=== PATIENT | male | born 2005 | race Hispanic/Latino ===

== ENCOUNTER 2025-05-17 18:16 | Inpatient (IN) | payer OTHER ==
[~2025-05-17] VITALS: Ht 167.6 cm; Wt 77.2 kg
[2025-05-17 18:54] LABS: PLATELET COUNT, AUTOMATED 357 10^3/uL (150-450)
[2025-05-17 19:15] LABS: BARBITURATES URINE NEGATIVE (NEGATIVE); COCAINE METABOLITE URINE NEGATIVE (NEGATIVE); METHADONE URINE NEGATIVE (NEGATIVE)
[2025-05-17 19:16] LABS: AMPHETAMINES LEVEL URINE NEGATIVE (NEGATIVE); BENZODIAZEPINES URINE NEGATIVE (NEGATIVE); CANNABINOIDS URINE NEGATIVE (NEGATIVE); OPIATES URINE NEGATIVE (NEGATIVE); PHENCYCLIDINE URINE NEGATIVE (NEGATIVE)
[2025-05-17 19:18] LABS: ETHYL ALCOHOL (ETHANOL) < 0.003 % (0.000-0.010)
[2025-05-17 19:20] LABS: ALT/SGPT 27 U/L (7.0-40); AST/SGOT 16 U/L (<34); CALCIUM LEVEL 9.5 MG/DL (8.5-10.1); CARBON DIOXIDE LEVEL 28 MMOL/L (20-31); CHLORIDE LEVEL 104 MMOL/L (98-107); CREATININE FOR GFR 0.99 MG/DL (0.70-1.30); GLOMERULAR FILTRATION RATE > 90.0 (>60); POTASSIUM SERUM 4.0 MMOL/L (3.5-5.1); SALICYLATE LEVEL < 3.0 MG/DL (<30); SODIUM LEVEL 142 MMOL/L (136-145)
[2025-05-17] MEDS ORDERED: HOME MED LIST COMPLETE! XX SCH (19:25)
[2025-05-17] MEDS ORDERED: MAALOX 30 ML SUSP *UDC PO PRN (22:05)
[2025-05-17] MEDS ORDERED: IBUPROFEN 400 MG TAB PO PRN (22:05)
[2025-05-17] MEDS ORDERED: traZODone 50 MG TAB PO PRN (22:05)
[2025-05-17] MEDS ORDERED: MOM 30 ML SUSPENSION UDC PO PRN (22:05)
[2025-05-17] MEDS ORDERED: ACETAMINOPHEN 325 MG TAB PO PRN (22:05)
[2025-05-17 22:49] VITALS: BP 112/67; TEMP 97.2; O2SAT 98
[2025-05-18 06:10] VITALS: BP 99/50; TEMP 97.7; O2SAT 96
[2025-05-18] MEDS: buPROPion **XL** 150 MG TABLET PO SCH (10:10)
[2025-05-18 15:19] VITALS: BP 131/72; TEMP 98.1; O2SAT 99
[2025-05-19 06:22] VITALS: BP 130/64; TEMP 97.6; O2SAT 100
[2025-05-19 15:22] VITALS: BP 141/76; TEMP 98; O2SAT 98
[2025-05-20 06:19] VITALS: BP 127/61; TEMP 97.8; O2SAT 100
[2025-05-20] MEDS ORDERED: BUPR150T12 PO (10:44)
== END 2025-05-20 13:13 | disposition home or self-care (01) | DRG 885 ==
LOC: EDBD 18:16 → M ED 18:16 → M ED INP 22:02 → M PSY 22:34
PROVIDERS: ADMIT Student in an Organized Health Care Education/Training Program; ATTEND Psychiatry & Neurology Psychiatry
DX: F32.1 Major depressive disorder, single episode, moderate (principal); R45.851 Suicidal ideations; F90.9 Attention-deficit hyperactivity disorder, unspecified type; Z56.89 Other problems related to employment; F43.25 Adjustment disorder with mixed disturbance of emotions and conduct